=== PATIENT | male | born 1995 | race Caucasian/White ===

== ENCOUNTER 2021-08-22 14:58 | Emergency (ER) | payer OTHER ==
[2021-08-22 15:10] VITALS: BP 131/74
[2021-08-22] MEDS ORDERED: ALBUTEROL 1 PUFF INH STA (16:14)
[2021-08-22] MEDS ORDERED: CETIRIZINE 10 MG TABLET PO STA (16:15)
[2021-08-22] MEDS ORDERED: CHERRY SYRUP 10 ML UDC PO ONE (16:15)
[2021-08-22] MEDS ORDERED: AMOXICILLIN 250 MG CAPSULE PO STA (16:15)
[2021-08-22] MEDS ORDERED: DEXAMETHASONE 10 MG/ML VIAL PO STA (16:15)
--- NOTE | 2021-08-22 16:16 | ED Physician Documentation ---
PD HPI URI - Stated complaint Stated Complaint: SOA,RIGHT EAR & HEAD PX,WEAK - Chief complaint Chief Complaint: Resp - History obtained from History obtained from: Patient - History of Present Illness Timing - onset: How many days ago (5-6) Timing duration: Days (5-6) Timing details: Gradual onset, Still present Associated symptoms: Chills, Ear pain (right for 2 days, with impaired hearing. No drainage.), Nasal congestion, Sinus pain Contributing factors: Sick contact (No direct contact with COVID and had negative rapid antigen COVID test x3. However exposed to other head cold type symptoms.), Travel (from [place] on short training session, returned 4 days ago.). No: COPD / asthma Improves by: No: Rest Worsened by: Activity (he feels unable to get breath with light activity.) Similar symptoms before: Has not had sx before Recently seen: Not recently seen ([facility] but was referred to the ER.) Review of Systems Constitutional: reports: Myalgias, Fatigue. denies: Fever Ears: reports: Ear pain (right side wiith imparied hearing for 2 days.) Nose: reports: Congestion, Sinus pressure / pain Respiratory: reports: Dyspnea, Cough. denies: Wheezing (just feeling breaths are "ineffective".) GI: reports: Nausea (when coughing hard.). denies: Vomiting, Diarrhea Skin: denies: Rash, Lesions PD PAST MEDICAL HISTORY - Past Medical History Cardiovascular: None Respiratory: None - Present Medications Home Medications: Ambulatory Orders Medication Instructions Recorded Confirmed Albuterol Sulf [Ventolin Hfa 2 - 3 puffs INH QID 10 Days #1 08/22/21 Inhaler] inhaler Amoxicillin 500 mg PO TID 5 Days #15 cap 08/22/21 Cetirizine [ZyrTEC] 10 mg PO BID #15 tablet 08/22/21 Naproxen 250 mg PO TID 7 Days #20 tablet 08/22/21 - Allergies Allergies/Adverse Reactions: Allergies Allergy/AdvReac Type Severity Reaction Status Date / Time No Known Drug Allergies Allergy Verified 08/22/21 15:10 PD ED PE NORMAL - Vitals Vital signs reviewed: Yes - General General: Alert and oriented X 3, Well developed/nourished - HEENT HEENT: Pharynx benign. No: Ears normal (left normal. right with redness, indistinct markings and fluid behind TM. ) Results - Vitals Vitals: Vital Signs - 24 hr 08/22/21 15:05 Temperature 36.5 C Heart Rate 80 Respiratory 14 Rate Blood Pressure 131/74 H O2 Saturation 98 Oxygen O2 Source Room air - Rads (name of study) chest xray Radiology: Prelim report reviewed (No infiltrates no pneumothorax. Fully expanded.), See rad report PD MEDICAL DECISION MAKING - ED course Complexity details: re-evaluated patient (He does have some prolonged expiratory phase and scattered wheezing with breaths. No coarse sounds. Heart is regular with crisp sounds. Right ear is redness with fluid behind the eardrum. He has been ill long enough that a secondary ear infection is possible.), considered differential (Upper respiratory infection symptoms along with cough and feeling short of breath. He has in home COVID test that are negative and feels he does not need another test. Concerned with his breathing.), d/w patient Departure - Departure Disposition: 01 Home, Self Care Clinical Impression: Upper respiratory infection Qualifiers: URI type: unspecified URI Qualified Code(s): J06.9 - Acute upper respiratory infection, unspecified Dyspnea Qualifiers: Dyspnea type: shortness of breath Qualified Code(s): R06.02 - Shortness of breath; R06.00 - Dyspnea, unspecified; R06.01 - Orthopnea Otitis media Qualifiers: Otitis media type: suppurative Chronicity: acute Laterality: right Recurrence: non-recurrent Spontaneous tympanic membrane rupture: without spontaneous rupture Qualified Code(s): H66.001 - Acute suppurative otitis media without spontaneous rupture of ear drum, right ear Condition: Stable Record reviewed to determine appropriate education?: Yes Instructions: ED URI Viral W Wheezing, ED Otitis Media Acute Adult Follow-Up: MARIE PRINGLE MD [Primary Care Provider] - Prescriptions: Amoxicillin 500 mg PO TID 5 Days #15 cap Naproxen 250 mg PO TID 7 Days #20 tablet Albuterol Sulf [Ventolin Hfa Inhaler] 2 - 3 puffs INH QID 10 Days #1 inhaler Cetirizine [ZyrTEC] 10 mg PO BID #15 tablet Comments: Your chest x-ray is clear without any signs of pneumonia nor fluid around the lungs. This does sound most likely a viral illness with congestion, sinus pressure, bronchial inflammation and trouble breathing. Your right eardrum is red with some fluid behind in the middle ear. This can be a secondary bacterial infection or may still be part of the main viral. As such though we commonly go some antibiotics to cover potential bacterial. Amoxicillin three times daily for that. I suggest you use an albuterol inhaler 2 to 3 puffs 4 times a day regularly for the next several days to week and extra times if needed to help with breathing. Naproxen anti-inflammatory 3 times daily with food for inflammation. Cetirizine twice daily for the next week for congestion. Rest off work the next couple of days until improved. Follow-up with your primary care if not well improved over the next couple of days more. I sent your prescriptions to [facility] pharmacy in [place].
--- NOTE | 2021-08-22 16:23 | XRAY Report ---
PROCEDURE: Chest 1 View X-Ray INDICATIONS: dyspnea TECHNIQUE: One view of the chest was acquired. COMPARISON: None FINDINGS: Surgical changes and devices: None. Lungs and pleura: No pleural effusions or pneumothorax. Lungs are clear. Mediastinum: Mediastinal contours appear normal. Heart size is normal. Bones and chest wall: No suspicious bony lesions. Overlying soft tissues appear unremarkable. IMPRESSION: No acute cardiopulmonary pathology. Reviewed by: Niko Segura MD on 08/22/2021 4:22 PM PDT Approved by: Niko Segura MD on 08/22/2021 4:22 PM PDT Station ID: [id number]
== END 2021-08-22 16:50 | disposition home or self-care (01) ==
LOC: ED 14:58
DX: J06.9 Acute upper respiratory infection, unspecified (principal); H66.001 Acute suppurative otitis media without spontaneous rupture of ear drum, right ear
CPT/HCPCS: 71045; 94640; 94664; 99282; 99284; A9270

== ENCOUNTER 2023-02-05 17:20 | Emergency (ER) | payer OTHER ==
[2023-02-05 17:39] VITALS: BP 138/89; O2SAT 98
[2023-02-05 18:12] LABS: MUDS CUTOFF CONCENTRATIONS CUTOFF CONC BELOW:
[2023-02-05 18:26] LABS: BILIRUBIN,URINE NEGATIVE (NEGATIVE); GLUCOSE, URINE (UA) NEGATIVE (NEGATIVE); KETONES,URINE (UA) NEGATIVE (NEGATIVE); LEUKOCYTE ESTERASE, URINE NEGATIVE (NEGATIVE); NITRITE,URINE NEGATIVE (NEGATIVE); OCCULT BLOOD,URINE NEGATIVE (NEGATIVE); PROTEIN,URINE NEGATIVE (NEGATIVE); UROBILINOGEN,URINE 0.2 (NORMAL) E.U./dL (NORMAL)
[2023-02-05 18:29] LABS: BASOPHILS # (AUTO) 0.1 10^3/uL (0.0-0.1); BASOPHILS % (AUTO) 0.8 %; EOSINOPHILS # (AUTO) 0.2 10^3/uL (0.0-0.7); EOSINOPHILS % (AUTO) 1.9 %; HCT - HEMATOCRIT 44.6 % (42.0-52.0); HGB - HEMOGLOBIN 15.8 g/dL (14.0-18.0); LYMPHOCYTES # (AUTO) 3.2 10^3/uL (1.5-3.5); LYMPHOCYTES % (AUTO) 37.6 %; MEAN CORPUSCULAR HEMOGLOBIN 30.6 pg (27.0-31.0); MEAN CORPUSCULAR HGB CONC 35.4 g/dL (32.0-36.0); MEAN CORPUSCULAR VOLUME 86.3 fL (80.0-94.0); MONOCYTES # (AUTO) 0.6 10^3/uL (0.0-1.0); MONOCYTES % (AUTO) 7.6 %; NEUTROPHILS # (AUTO) 4.4 10^3/uL (1.5-6.6); NEUTROPHILS % (AUTO) 51.7 %; PLT - PLATELET COUNT 265 10^3/uL (130-450); RED BLOOD COUNT 5.17 10^6/uL (4.70-6.10); RED CELL DISTRIBUTION WIDTH 11.8 % (12.0-15.0); WHITE BLOOD COUNT 8.4 x10^3/uL (4.8-10.8)
[2023-02-05 18:32] LABS: CLARITY,URINE CLEAR (CLEAR)
[2023-02-05 18:35] LABS: AMPHETAMINE SCREEN,URINE NEGATIVE (NEGATIVE); BARBITURATE SCREEN,UR NEGATIVE (NEGATIVE); BENZODIAZEPINES SCREEN, URINE NEGATIVE (NEGATIVE); COCAINE SCREEN URINE NEGATIVE (NEGATIVE); METHADONE SCREEN, URINE NEGATIVE (NEGATIVE); METHAMPHETAMINES SCREEN, URINE NEGATIVE (NEGATIVE); OPIATE SCREEN, URINE NEGATIVE (NEGATIVE); OXYCODONE SCREEN, URINE NEGATIVE (NEGATIVE); PROPOXYPHENE SCREEN, URINE NEGATIVE (NEGATIVE); THC CANNABINOID SCREEN, URINE NEGATIVE (NEGATIVE); TRICYCLIC ANTIDEPRESSANT,URINE NEGATIVE (NEGATIVE)
[2023-02-05 18:39] LABS: ACETAMINOPHEN 0.1 ug/mL; ALBUMIN/GLOBULIN RATIO 1.8 (1.0-2.2); ALKALINE PHOSPHATASE 46 IU/L (42-121); ALT ALANINE AMINOTRANSFERASE 96 IU/L (10-60); AST ASPARTATE AMINOTRANSFERASE 54 IU/L (10-42); BILIRUBIN,TOTAL 0.5 mg/dL (0.2-1.0); BUN - BLOOD UREA NITROGEN 16 mg/dL (6-20); CALCIUM 10.2 mg/dL (8.5-10.3); CARBON DIOXIDE - CO2 26 mmol/L (21-32); CHLORIDE 105 mmol/L (101-111); CK- CREATINE KINASE 226 IU/L (30-223); CREATININE 0.9 mg/dL (0.6-1.3); ETOH - ETHANOL < 10.0 mg/dL; GFR - MDRD 100 (>89); GLUCOSE 94 mg/dL (74-104); LIPASE 39 U/L (11-82); MAGNESIUM 1.6 mg/dL (1.7-2.3); SODIUM 139 mmol/L (135-145); TOTAL PROTEIN 7.8 g/dL (6.4-8.9)
[2023-02-05 18:47] LABS: SALICYLATE < 1.5 mg/dL
[2023-02-05 18:53] LABS: THYROID STIMULATING HORMONE 2.23 uIU/mL (0.34-5.60)
--- NOTE | 2023-02-05 18:56 | ED Physician Documentation ---
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 He states that he has been feeling increasingly suicidal over the past several months. No specific trigger. Drinks socially. No drug use. He does vape. He states he attempted suicide by overdosing on his mother's medications at age 17. He states that he was "disappointed" when he awoke in the morning. He has never been hospitalized for suicidal ideation. He states that if he had access to a gun we "would not be talking". He currently still feels suicidal. He does not feel like he can keep himself safe at home. [place] but they referred him to online therapy and he did not feel like that was personal enough so he quit going. He was on Adderall for ADHD, but is not currently on any medications. Review of Systems Constitutional: denies: Fever Respiratory: denies: Cough GI: denies: Vomiting, Diarrhea Skin: denies: Rash Musculoskeletal: reports: Other (Patient is in a walking boot to the right lower extremity from a ankle sprain 7 months ago.). denies: Neck pain, Extremity pain Psychiatric: reports: Depressed, Suicidal. denies: Hallucinations, Delusions PD PAST MEDICAL HISTORY - Past Medical History Cardiovascular: None Respiratory: None - Past Surgical History Past Surgical History: No - Present Medications Home Medications: Ambulatory Orders Medication Instructions Recorded Confirmed No Known Home Medications 02/05/23 02/05/23 - Allergies Allergies/Adverse Reactions: Allergies Allergy/AdvReac Type Severity Reaction Status Date / Time No Known Drug Allergies Allergy Verified 02/05/23 17:33 - Social History Does the pt smoke?: No Smoking Status: Never smoker - POLST Patient has POLST: No PD ED PE NORMAL - Vitals Vital signs reviewed: Yes - General General: Alert and oriented X 3, No acute distress - HEENT HEENT: PERRL, Moist mucous membranes - Neck Neck: Supple, no meningeal sign - Cardiac Cardiac: RRR, Strong equal pulses - Respiratory Respiratory: No respiratory distress, Clear bilaterally - Abdomen Abdomen: Soft, Non tender, Non distended - Derm Derm: Warm and dry - Extremities Extremities: No edema, No calf tenderness / cord, Other (Walking boot on right lower extremity) - Neuro Neuro: Alert and oriented X 3 - Psych Psych: Normal mood, Normal affect Results - Vitals Vitals: Vital Signs - 24 hr 02/05/23 17:27 Temperature 36.5 C Heart Rate 98 Respiratory 14 Rate Blood Pressure 138/89 H O2 Saturation 98 Oxygen O2 Source Room air - Labs Labs: Laboratory Tests 02/05/23 02/05/23 02/05/23 18:10 18:11 18:18 WBC 8.4 RBC 5.17 Hgb 15.8 Hct 44.6 MCV 86.3 MCH 30.6 MCHC 35.4 RDW 11.8 L Plt Count 265 MPV 10.0 Neut # (Auto) 4.4 Lymph # (Auto) 3.2 [place] # (Auto) 0.6 Eos # (Auto) 0.2 Baso # (Auto) 0.1 Absolute Nucleated RBC 0.00 Nucleated RBC % 0.0 Sodium Potassium Chloride Carbon Dioxide Anion Gap BUN Creatinine Estimated GFR (MDRD) Glucose Calcium Magnesium Total Bilirubin AST ALT Alkaline Phosphatase Total Creatine Kinase Total Protein Albumin Globulin Albumin/Globulin Ratio Lipase TSH Urine Color YELLOW Urine Clarity CLEAR Urine pH 6.0 Ur Specific [place] 1.020 Urine Protein NEGATIVE Urine Glucose (UA) NEGATIVE Urine Ketones NEGATIVE Urine Occult Blood NEGATIVE Urine Nitrite NEGATIVE Urine Bilirubin NEGATIVE Urine Urobilinogen 0.2 (NORMAL) Ur Leukocyte Esterase NEGATIVE Ur Microscopic Review NOT INDICATED Urine Culture Comments NOT INDICATED Salicylates Urine Opiates Screen NEGATIVE Ur Oxycodone Screen NEGATIVE Urine Methadone Screen NEGATIVE Ur Propoxyphene Screen NEGATIVE Acetaminophen Ur Barbiturates Screen NEGATIVE Ur Tricyclics Screen NEGATIVE Ur Phencyclidine Scrn NEGATIVE Ur Amphetamine Screen NEGATIVE U Methamphetamines Scrn NEGATIVE U Benzodiazepines Scrn NEGATIVE Urine Cocaine Screen NEGATIVE U Cannabinoids Screen NEGATIVE Ethyl Alcohol SARS-CoV-2 (PCR) NOT DETECTED 02/05/23 18:18 WBC RBC Hgb Hct MCV MCH MCHC RDW Plt Count MPV Neut # (Auto) Lymph # (Auto) [place] # (Auto) Eos # (Auto) Baso # (Auto) Absolute Nucleated RBC Nucleated RBC % Sodium 139 Potassium 4.0 Chloride 105 Carbon Dioxide 26 Anion Gap 8.0 BUN 16 Creatinine 0.9 Estimated GFR (MDRD) 100 Glucose 94 Calcium 10.2 Magnesium 1.6 L Total Bilirubin 0.5 AST 54 H ALT 96 H Alkaline Phosphatase 46 Total Creatine Kinase 226 H Total Protein 7.8 Albumin 5.0 Globulin 2.8 Albumin/Globulin Ratio 1.8 Lipase 39 TSH 2.23 Urine Color Urine Clarity Urine pH Ur Specific [place] Urine Protein Urine Glucose (UA) Urine Ketones Urine Occult Blood Urine Nitrite Urine Bilirubin Urine Urobilinogen Ur Leukocyte Esterase Ur Microscopic Review Urine Culture Comments Salicylates < 1.5 Urine Opiates Screen Ur Oxycodone Screen Urine Methadone Screen Ur Propoxyphene Screen Acetaminophen 0.1 Ur Barbiturates Screen Ur Tricyclics Screen Ur Phencyclidine Scrn Ur Amphetamine Screen U Methamphetamines Scrn U Benzodiazepines Scrn Urine Cocaine Screen U Cannabinoids Screen Ethyl Alcohol < 10.0 SARS-CoV-2 (PCR) PD Medical Decision Making - ED course Complexity details: reviewed results, re-evaluated patient, considered differential, d/w patient, d/w sales development consultant ED course: Patient is medically clear for psychiatric care. He is actively suicidal and does not feel that he can keep himself safe. Has had a suicide attempt in the past but never been hospitalized. As he is actively suicidal and cannot safety plan, I will contact [facility] for possible placement. Discussed the case with [facility], Dr. Hassan, she graciously accepts in transfer. Patient will be transferred for further psychiatric care. [employer] forms [employer] mpleted. This document was made in part using voice recognition software. While efforts are made to proofread this document, sound alike and grammatical errors may occur. Departure - Departure Disposition: 65 Psych Hosp/Unit DC/Xfer Clinical Impression: Suicidal ideation Condition: Stable Forms: PCP List
== END 2023-02-05 21:04 ==
LOC: ED 17:20
DX: R45.851 Suicidal ideations (principal); F32.A Depression, unspecified; Z20.822 Contact with and (suspected) exposure to COVID-19
CPT/HCPCS: 36415; 80053; 80306; 80307; 80320; 80329; 81001; 81003; 82550; 83690; 83735; 84443; 85025; 87086; 87635; 99285

== ENCOUNTER 2023-06-09 15:17 | Emergency (ER) | payer OTHER ==
[2023-06-09 16:23] LABS: RAPID STREP SCREEN Negative (Negative)
[2023-06-09 17:01] LABS: B. PARAPERTUSSIS- RESP PCR PAN NOT DETECTED; B. PERTUSSIS- RESP PCR PANEL NOT DETECTED; C. PNEUMONIAE- RESP PCR PANEL NOT DETECTED; CORONAVIRUS 229E-RESP PCR NOT DETECTED; CORONAVIRUS HKU1-RESP PCR NOT DETECTED; CORONAVIRUS NL63-RESP PCR NOT DETECTED; CORONAVIRUS OC43-RESP PCR NOT DETECTED; HUMAN METAPNEUMOVIRUS NOT DETECTED; INFLUENZA A- RESP PCR PANEL NOT DETECTED; INFLUENZA B - RESP PCR PANEL NOT DETECTED; M. PNEUMONIAE- RESP PCR PANEL NOT DETECTED; PARAINFLUENZA VIRUS 1 NOT DETECTED; PARAINFLUENZA VIRUS 2 NOT DETECTED; PARAINFLUENZA VIRUS 3 NOT DETECTED; PARAINFLUENZA VIRUS 4 NOT DETECTED; RHINOVIRUS/ENTEROVIRUS NOT DETECTED; RSV- RESP PCR PANEL NOT DETECTED; SARS-CoV-2 -RESP PCR PANEL NOT DETECTED
[2023-06-09] MEDS: DEXAMETHASONE 10 MG/ML VIAL PO STA (17:06)
[2023-06-09] MEDS: CHERRY SYRUP 10 ML UDC PO ONE (17:06)
[2023-06-09] MEDS: IBUPROFEN 600 MG TABLET PO STA (17:32)
[2023-06-09] MEDS: ACETAMINOPHEN 325 MG TABLET PO STA (17:32)
--- NOTE | 2023-06-09 17:50 | ED Physician Documentation ---
PD HPI HEENT - Stated complaint Stated Complaint: THROAT PX, SOA,DIZZINESS,LOSS OF BALANCE - Chief complaint Chief Complaint: Heent - Additional information Additional information: 28-year-old male presents emergency department for 1 week of sore throat. He went to [facility] where he was told to take Tylenol ibuprofen he was never prescribed any steroids at that time. He is told to come back to the emergency department for further evaluation if symptoms do not improve. Patient says that he has been coughing up some blood feels generalized malaise and now reports an new dizziness where he feels like he is having a hard time catching his balance because he feels like the room is spinning around her ground is unstable. He reports it is painful to swallow he has been unsure if he had any fevers or chills but does report that he has noted tachycardia on his watch PD PAST MEDICAL HISTORY - Past Medical History Past Medical History: Yes Cardiovascular: None Respiratory: None Neuro: None Endocrine/Autoimmune: None GI: None : None Psych: Depression, Anxiety, Panic attacks, Other Musculoskeletal: Other Derm: None - Past Surgical History Past Surgical History: No - Present Medications Home Medications: Ambulatory Orders Medication Instructions Recorded Confirmed Amoxicillin 500 mg PO BID 10 Days #20 cap 06/09/23 DULoxetine [Cymbalta] 20 mg PO DAILY 06/09/23 06/09/23 Dextroamphetamine/Amphetamine 5 mg PO DAILY 06/09/23 06/09/23 [Dextroamp-Amphetamine 5 mg Tab] Meclizine [Antivert] 12.5 mg PO TID PRN #15 tablet 06/09/23 clonazePAM [Clonazepam] 0.5 mg PO DAILY 06/09/23 06/09/23 dexAMETHasone [Decadron] 4 mg PO 0800 4 Days #4 tablet 06/09/23 - Allergies Allergies/Adverse Reactions: Allergies Allergy/AdvReac Type Severity Reaction Status Date / Time No Known Drug Allergies Allergy Verified 06/09/23 15:59 - Social History Does the pt smoke?: No Smoking Status: Never smoker Does the pt drink ETOH?: Yes Does the pt have substance abuse?: No - Immunizations Immunizations are current?: Yes - POLST Patient has POLST: No PD ED PE NORMAL - Vitals Vital signs reviewed: Yes - General General: Alert and oriented X 3, No acute distress, Well developed/nourished - HEENT HEENT: PERRL, EOMI, Ears normal, Moist mucous membranes, Other (Uvula is midline does appear to be swollen and erythematous, No peritonsillar abscess, 3+ bilateral tonsils) - Neck Neck: Supple, no meningeal sign, No bony TTP, Other (right cervical adenopathy) - Respiratory Respiratory: No respiratory distress, Clear bilaterally - Abdomen Abdomen: Normal bowel sounds, Soft, Non tender, No organomegaly - Back Back: No CVA TTP - Derm Derm: Normal color, Warm and dry, No rash - Extremities Extremities: No edema - Neuro Neuro: Alert and oriented X 3, correctional guard 2-12 intact, No motor deficit, Normal speech Eye Opening: Spontaneous Motor: Obeys Commands Verbal: Oriented GCS Score: 15 - Psych Psych: Normal mood Results - Vitals Vitals: Vital Signs - 24 hr 06/09/23 06/09/23 15:59 18:01 Temperature 36.7 C 36.8 C Heart Rate 108 H 86 Respiratory 20 16 Rate Blood Pressure 119/76 120/77 O2 Saturation 96 100 Oxygen O2 Source Room air - Labs Labs: Laboratory Tests 06/09/23 06/09/23 16:05 16:05 Nasal Adenovirus (PCR) NOT DETECTED Nasal B. parapertussis DNA (PCR) NOT DETECTED Nasal Coronavir 229E PCR NOT DETECTED Nasal Coronavir HKU1 PCR NOT DETECTED Nasal Coronavir NL63 PCR NOT DETECTED Nasal Coronavir OC43 PCR NOT DETECTED Nasal Enterovir/Rhinovir PCR NOT DETECTED Nasal Influenza B PCR NOT DETECTED Nasal Influenza A PCR NOT DETECTED Nasal Parainfluen 1 PCR NOT DETECTED Nasal Parainfluen 2 PCR NOT DETECTED Nasal Parainfluen 3 PCR NOT DETECTED Nasal Parainfluen 4 PCR NOT DETECTED Nasal RSV (PCR) NOT DETECTED Nasal B.pertussis DNA PCR NOT DETECTED Nasal C.pneumoniae (PCR) NOT DETECTED [place] Human Metapneumo PCR NOT DETECTED Nasal M.pneumoniae (PCR) NOT DETECTED Nasal SARS-CoV-2 (PCR) NOT DETECTED Group A Strep Rapid Negative - Rads (name of study) X-ray soft tissue neck Relevant Findings:: Final report received, EMP independent interpretation of test, Other (No epiglottitis normal-appearing x-ray) PD Medical Decision Making - ED course ED course: 28-year-old male presents emergency department for ongoing sore throat now for about a week. Viral swab complete no viruses detected, negative rapid group A strep. Swab was sent for further culture analysis. Soft tissue x-ray was also complete which does not reveal epiglottitis. Patient does not have hot potato voice he does appear to have a soft voice which sounds to be more pharyngeal. No history of immunocompromise. Nontoxic appearance. Patient euvolemic with no trismus. No airway compromise. No tonsilar exudates, He does have right cervical enlarged lymph nodes. Able to tolerate PO. Given History and Exam I have low suspicion for this presentation being caused by GRINDER SET UP OPERATOR CENTERLESS, RPA, Ludwigs angina, Epiglottitis or Bacterial Tracheitis, EBV, acute HIV, or Strep throat. Because patient has been feeling ill now for about a week or so we went ahead and started him on amoxicillin antibiotics and gave him steroids here in the emergency department to help with his throat pain and swelling he is experiencing. Patient also describes symptoms of BPPV I considered lab otitis but he does not have any ear ringing or decreased hearing. He was given a prescription of meclizine to help with his vertigo symptoms he was told also how to do Rafael's maneuver at home to help with this. He was given very strict return precautions told to follow-up with his primary care provider about today's emergency department visit Departure - Departure Disposition: 01 Home, Self Care Clinical Impression: Vertigo Pharyngitis Qualifiers: Pharyngitis/tonsillitis etiology: unspecified etiology Qualified Code(s): J02.9 - Acute pharyngitis, unspecified Condition: Good Instructions: Vertigo Paroxysmal Positional, ED Pharyngitis Viral Prescriptions: Amoxicillin 500 mg PO BID 10 Days #20 cap Meclizine [Antivert] 12.5 mg PO TID PRN #15 tablet PRN Reason: Dizziness dexAMETHasone [Decadron] 4 mg PO 0800 4 Days #4 tablet Comments: Thank you for trusting us with your care. I believe that you hide pharyngitis we have completed an x-ray which does not show any epiglottitis. We have started you on an antibiotic called amoxicillin as well as a steroid called dexamethasone. I want you to take the antibiotic amoxicillin twice a day for the next 10 days and you will take your dexamethasone the steroid once a day for the next 4 days. In regards to your dizziness I believe that you are experiencing something called BPPV, also known as vertigo. I have prescribed you medication called meclizine to help with the symptoms that you are experiencing. I also want you to look up on YouTube something called Rafael's maneuver to help with your ongoing symptoms of vertigo. Make sure that you are drinking plenty of water do warm salt water rinses and alternate between Tylenol and ibuprofen for any pain and discomfort you are experiencing in your throat. Please come back to the emergency department if after 2 days your throat pain has not gotten any better after being on the antibiotics and steroids, or if you have any difficulty breathing, shortness of breath, chest pain or any other worsening concerning symptoms. Wishing you a speedy recovery. Forms: PCP List Discharge Date/Time: 06/09/23 18:01
[2023-06-09] MEDS: MECLIZINE 12.5 MG TABLET PO STA (17:52)
[2023-06-09] MEDS: AMOXICILLIN 250 MG CAPSULE PO STA (17:58)
[2023-06-09 18:06] VITALS: BP 120/77; O2SAT 100
--- NOTE | 2023-06-09 19:08 | XRAY Report ---
PROCEDURE: Neck Soft Tissue INDICATIONS: throat swelling voice changes TECHNIQUE: 2 views of the neck were acquired. COMPARISON: None FINDINGS: Airway: The airway appears patent. Soft tissues: Prevertebral soft tissues are normal in thickness. The epiglottis and aryepiglottic f olds appear normal. No soft tissue gas. Bones: No suspicious bony lesions. Visualized cervical spine is normally aligned. IMPRESSION: Unremarkable soft tissue neck radiographs Reviewed by: Lio David MD on 06/09/2023 6:07 PM [facility] Approved by: Lio David MD on 06/09/2023 6:07 PM [facility] Station ID: [id number]
== END 2023-06-09 18:01 | disposition home or self-care (01) ==
LOC: ED 15:17
DX: J02.9 Acute pharyngitis, unspecified (principal); R42 Dizziness and giddiness
CPT/HCPCS: 70360; 87070; 87430; 87633; 99284; A9270

== ENCOUNTER 2023-06-18 11:54 | Emergency (ER) | payer OTHER ==
--- NOTE | 2023-06-18 12:57 | ED Physician Documentation ---
History of Present Illness - Stated complaint Stated Complaint: SOA,THROATPAIN,UNABLE TO OPEN MOUTH WIDE - Chief complaint Chief Complaint: General - Additonal information Additional information: 28-year-old male presents back to the emergency department for ongoing sore throat. He has been seen multiple times for this he has been prescribed Augmentin, steroids, meclizine. He reported to urgent care today for ongoing sore throat and they referred him to come into the emergency department. Patient has longstanding history of severe depression with suicidal ideation, depersonalization, derealization syndrome, chronic pain of right lower extremity, complex regional pain syndrome. Patient's voice does not sound like hot potato voice but it does sound like he has a mild hoarseness to the voice. He has a notebook with him he says that he has a hard time speaking and asked me to read his note but instead of communicating and conversing with me. Patient said that he was all seen by DOD in May where he was told he had a high white blood cell count and feels like he has been struggling with sore throat since then and feels like maybe something has been missed. He is unsure if he has had any fevers or chills but reports he feels very flushed and hot periodically. PD PAST MEDICAL HISTORY - Past Medical History Past Medical History: Yes Cardiovascular: None Respiratory: None Neuro: None Endocrine/Autoimmune: None GI: None : None Psych: Depression, Anxiety, Panic attacks, Other Musculoskeletal: Other Derm: None - Past Surgical History Past Surgical History: No - Present Medications Home Medications: Ambulatory Orders Medication Instructions Recorded Confirmed Amoxicillin 500 mg PO BID 10 Days #20 cap 06/09/23 DULoxetine [Cymbalta] 20 mg PO DAILY 06/09/23 06/09/23 Dextroamphetamine/Amphetamine 5 mg PO DAILY 06/09/23 06/09/23 [Dextroamp-Amphetamine 5 mg Tab] Meclizine [Antivert] 12.5 mg PO TID PRN #15 tablet 06/09/23 clonazePAM [Clonazepam] 0.5 mg PO DAILY 06/09/23 06/09/23 dexAMETHasone [Decadron] 4 mg PO 0800 4 Days #4 tablet 06/09/23 - Allergies Allergies/Adverse Reactions: Allergies Allergy/AdvReac Type Severity Reaction Status Date / Time No Known Drug Allergies Allergy Verified 06/18/23 12:13 - Social History Does the pt smoke?: No Smoking Status: Never smoker Does the pt drink ETOH?: Yes Does the pt have substance abuse?: No - Immunizations Immunizations are current?: Yes - POLST Patient has POLST: No PD ED PE NORMAL - Vitals Vital signs reviewed: Yes - General General: Alert and oriented X 3, No acute distress, Well developed/nourished - HEENT HEENT: Atraumatic, PERRL, EOMI, Ears normal, Moist mucous membranes, Pharynx benign, Dentition benign - Neck Neck: Supple, no meningeal sign, No bony TTP, No adenopathy, Thyroid normal, No JVD - Cardiac Cardiac: RRR, No murmur, No gallop, Strong equal pulses - Respiratory Respiratory: No respiratory distress, Clear bilaterally - Back Back: No CVA TTP - Derm Derm: Normal color, Warm and dry, No rash - Extremities Extremities: No deformity, No edema Results - Vitals Vitals: Vital Signs - 24 hr 06/18/23 06/18/23 12:06 14:13 Temperature 36.7 C Heart Rate 105 H 94 Respiratory 20 16 Rate Blood Pressure 150/94 H 143/97 H O2 Saturation 96 100 Oxygen O2 Source Room air - Labs Labs: Laboratory Tests 06/18/23 06/18/23 06/18/23 13:20 13:20 13:20 WBC 8.3 RBC 5.31 Hgb 16.6 Hct 47.9 MCV 90.2 MCH 31.3 H MCHC 34.7 RDW 12.7 Plt Count 268 MPV 9.9 Neut # (Auto) 5.5 Lymph # (Auto) 1.9 Winn # (Auto) 0.7 Eos # (Auto) 0.1 Baso # (Auto) 0.1 Absolute Nucleated RBC 0.00 Nucleated RBC % 0.0 Sodium 137 Potassium 4.7 H Chloride 104 Carbon Dioxide 24 Anion Gap 9.0 BUN 18 Creatinine 0.8 Estimated GFR (MDRD) 114 Glucose 97 Calcium 9.9 Magnesium 2.0 Total Bilirubin 0.6 AST 43 H ALT 80 H Alkaline Phosphatase 44 Total Protein 7.8 Albumin 4.9 Globulin 2.9 Albumin/Globulin Ratio 1.7 Nasal Adenovirus (PCR) Nasal B. parapertussis DNA (PCR) Nasal Coronavir 229E PCR Nasal Coronavir HKU1 PCR Nasal Coronavir NL63 PCR Nasal Coronavir OC43 PCR Nasal Enterovir/Rhinovir PCR Nasal Influenza B PCR Nasal Influenza A PCR Nasal Parainfluen 1 PCR Nasal Parainfluen 2 PCR Nasal Parainfluen 3 PCR Nasal Parainfluen 4 PCR Nasal RSV (PCR) Nasal B.pertussis DNA PCR Nasal C.pneumoniae (PCR) Holden Human Metapneumo PCR Nasal M.pneumoniae (PCR) Nasal SARS-CoV-2 (PCR) 06/18/23 13:40 WBC RBC Hgb Hct MCV MCH MCHC RDW Plt Count MPV Neut # (Auto) Lymph # (Auto) Winn # (Auto) Eos # (Auto) Baso # (Auto) Absolute Nucleated RBC Nucleated RBC % Sodium Potassium Chloride Carbon Dioxide Anion Gap BUN Creatinine Estimated GFR (MDRD) Glucose Calcium Magnesium Total Bilirubin AST ALT Alkaline Phosphatase Total Protein Albumin Globulin Albumin/Globulin Ratio Nasal Adenovirus (PCR) NOT DETECTED Nasal B. parapertussis DNA (PCR) NOT DETECTED Nasal Coronavir 229E PCR NOT DETECTED Nasal Coronavir HKU1 PCR NOT DETECTED Nasal Coronavir NL63 PCR NOT DETECTED Nasal Coronavir OC43 PCR NOT DETECTED Nasal Enterovir/Rhinovir PCR NOT DETECTED Nasal Influenza B PCR NOT DETECTED Nasal Influenza A PCR NOT DETECTED Nasal Parainfluen 1 PCR NOT DETECTED Nasal Parainfluen 2 PCR NOT DETECTED Nasal Parainfluen 3 PCR NOT DETECTED Nasal Parainfluen 4 PCR NOT DETECTED Nasal RSV (PCR) NOT DETECTED Nasal B.pertussis DNA PCR NOT DETECTED Nasal C.pneumoniae (PCR) NOT DETECTED Holden Human Metapneumo PCR NOT DETECTED Nasal M.pneumoniae (PCR) NOT DETECTED Nasal SARS-CoV-2 (PCR) NOT DETECTED - Rads (name of study) Chest x-ray Relevant Findings:: Final report received, EMP independent interpretation of test, Other ( No acute cardiopulmonary abnormalities) Soft tissue neck CT with con Relevant Findings:: Final report received, EMP independent interpretation of test, Other (No enlarged lymph nodes no acute abnormalities or findings no abscesses ) PD Medical Decision Making - ED course ED course: 28-year-old male presents emergency department for persistent ongoing sore throat. Patient has been seen multiple times for this a complete and very thorough workup was done today including a CT soft tissue neck which did not reveal any abnormalities or findings that could conclude why patient is having right neck pain. Respiratory panel is negative, labs were unremarkable, chest x-ray is also unremarkable.Originally when patient presented to the emergency department he had some hoarseness to his voice it was not hot potato voice but it sounded very hoarse after patient was informed that he had a completely unremarkable and benign workup his voice started to become more audible and clear. Patient says that he is worried that this could be a new manifestation of his chronic pain syndrome that he experiences in his right lower extremity that he might be manifesting into his throat. I told him he needed to follow-up with neurology and psychiatry about this and that he had great insight and continue to further investigate And question this. Patient agrees that he is safe for discharge all questions are answered and he is told to follow-up with primary care provider, neurology and psychiatry for further investigation of his chronic sore throat pain. Departure - Departure Disposition: 01 Home, Self Care Clinical Impression: Pharyngitis Instructions: ED Pharyngitis Viral Comments: Thank you for trusting us with your care. We have done a very thorough and complete evaluation of your throat pain that you are experiencing including a chest x-ray, neck CT, labs, respiratory panel and everything has come back within normal limits. I am not sure what is causing this ongoing chronic throat pain but from the emergency department standpoint there is no further emergent workup indicated at this time. I recommend following up with your primary care provider for possible ENT referral. Continue with Tylenol ibuprofen for any pain and discomfort. Forms: PCP List Discharge Date/Time: 06/18/23 15:49
[2023-06-18 13:35] LABS: BASOPHILS # (AUTO) 0.1 10^3/uL (0.0-0.1); BASOPHILS % (AUTO) 0.6 %; EOSINOPHILS # (AUTO) 0.1 10^3/uL (0.0-0.7); EOSINOPHILS % (AUTO) 0.8 %; HCT - HEMATOCRIT 47.9 % (42.0-52.0); HGB - HEMOGLOBIN 16.6 g/dL (14.0-18.0); LYMPHOCYTES # (AUTO) 1.9 10^3/uL (1.5-3.5); LYMPHOCYTES % (AUTO) 23.1 %; MEAN CORPUSCULAR HEMOGLOBIN 31.3 pg (27.0-31.0); MEAN CORPUSCULAR HGB CONC 34.7 g/dL (32.0-36.0); MEAN CORPUSCULAR VOLUME 90.2 fL (80.0-94.0); MEAN PLATELET VOLUME 9.9 fL (7.4-11.4); MONOCYTES # (AUTO) 0.7 10^3/uL (0.0-1.0); NEUTROPHILS # (AUTO) 5.5 10^3/uL (1.5-6.6); NEUTROPHILS % (AUTO) 66.9 %; PLT - PLATELET COUNT 268 10^3/uL (130-450); RED BLOOD COUNT 5.31 10^6/uL (4.70-6.10); RED CELL DISTRIBUTION WIDTH 12.7 % (12.0-15.0); WHITE BLOOD COUNT 8.3 x10^3/uL (4.8-10.8)
[2023-06-18] MEDS ORDERED: iohexoL-300 100 ML VIAL ONE (13:42)
[2023-06-18 14:26] VITALS: BP 143/97; O2SAT 100
--- NOTE | 2023-06-18 14:26 | XRAY Report ---
PROCEDURE: Chest 2V INDICATIONS: SOA TECHNIQUE: 2 views of the chest were acquired. COMPARISON: None. FINDINGS: Surgical changes and devices: None. Lungs and pleura: No pleural effusions or pneumothorax. Lungs are clear. Mediastinum: Mediastinal contours appear normal. Heart size is normal. Bones and chest wall: No suspicious bony lesions. Overlying soft tissues appear unremarkable. IMPRESSION: No acute cardiopulmonary process. Reviewed by: Kuldip iMms MD on 06/18/2023 2:24 PM PDT Approved by: Kuldip Mims MD on 06/18/2023 2:24 PM PDT Station ID: [id number]
[2023-06-18 14:27] LABS: ALBUMIN 4.9 g/dL (3.2-5.5); ALBUMIN/GLOBULIN RATIO 1.7 (1.0-2.2); BILIRUBIN,TOTAL 0.6 mg/dL (0.2-1.0); CALCIUM 9.9 mg/dL (8.5-10.3); CREATININE 0.8 mg/dL (0.6-1.3); POTASSIUM 4.7 mmol/L (3.5-4.5); TOTAL PROTEIN 7.8 g/dL (6.4-8.9)
[2023-06-18 14:45] LABS: B. PARAPERTUSSIS- RESP PCR PAN NOT DETECTED; B. PERTUSSIS- RESP PCR PANEL NOT DETECTED; C. PNEUMONIAE- RESP PCR PANEL NOT DETECTED; CORONAVIRUS 229E-RESP PCR NOT DETECTED; CORONAVIRUS HKU1-RESP PCR NOT DETECTED; CORONAVIRUS NL63-RESP PCR NOT DETECTED; CORONAVIRUS OC43-RESP PCR NOT DETECTED; HUMAN METAPNEUMOVIRUS NOT DETECTED; INFLUENZA A- RESP PCR PANEL NOT DETECTED; INFLUENZA B - RESP PCR PANEL NOT DETECTED; M. PNEUMONIAE- RESP PCR PANEL NOT DETECTED; PARAINFLUENZA VIRUS 1 NOT DETECTED; PARAINFLUENZA VIRUS 2 NOT DETECTED; PARAINFLUENZA VIRUS 3 NOT DETECTED; PARAINFLUENZA VIRUS 4 NOT DETECTED; RHINOVIRUS/ENTEROVIRUS NOT DETECTED; RSV- RESP PCR PANEL NOT DETECTED; SARS-CoV-2 -RESP PCR PANEL NOT DETECTED
--- NOTE | 2023-06-18 15:19 | CT Report ---
PROCEDURE: Soft Tissue Neck W INDICATIONS: SOA, right neck pain, CONTRAST: Omni 300- 100ml TECHNIQUE: After the administration of intravenous contrast, 3.0 mm axial sections acquired from the sella to th e aortic arch. Additional oblique axial 3.0 mm sections acquired through the pharynx. 3 mm thick co bossman reformats were generated. For radiation dose reduction, the following was used: automated exp osure control, adjustment of mA and/or kV according to patient size. COMPARISON: None. FINDINGS: Image quality: Excellent. Lymph nodes: No enlarged lymph nodes seen throughout the neck. Vessels: Visualized vasculature appears patent. Neck spaces: The oropharynx, nasopharynx, and pharynx demonstrate no mucosal lesions. The vocal cor ds, false vocal cords, pyriform sinuses, epiglottis, vallecula, and tongue base all appear normal. E xtramucosal spaces appear unremarkable. Glands: The parotid and submandibular glands appear normal. The thyroid is normal in size and there are no incidental findings. Miscellaneous: Visualized brain and orbits appear normal. Lung apices appear clear. Superficial so ft tissues appear normal. Bones: No suspicious bony lesions. Polypoidal mucosal thickening versus mucus retention cyst in the left frontal sinus. IMPRESSION: Normal neck CT. No abnormal findings to explain the patient's right-sided neck pain. CLINICAL RECOMMENDATION STATEMENTS: In patients <35 years with an ITN detected on CT, MRI, or extrathyroidal ultrasound, the Committee re commends further evaluation with dedicated thyroid ultrasound if the nodule is "e1 cm and has no susp icious imaging features, and if the patient has normal life expectancy. In patients "e35 years with an ITN detected on CT, MRI, or extrathyroidal ultrasound, the Committee r ecommends further evaluation with dedicated thyroid ultrasound if the nodule is "e1.5 cm and has no s uspicious imaging features, and if the patient has normal life expectancy. (ACR, 2014) Reviewed by: Kuldip Mims MD on 06/18/2023 3:18 PM PDT Approved by: Kuldip Mims MD on 06/18/2023 3:18 PM PDT Station ID: [id number]
[2023-06-18] MEDS: iohexoL-300 100 ML VIAL IVP ONE (16:47)
== END 2023-06-18 15:49 | disposition home or self-care (01) ==
LOC: ED 11:54
DX: J02.9 Acute pharyngitis, unspecified (principal); G89.4 Chronic pain syndrome; F32.A Depression, unspecified; Z79.899 Other long term (current) drug therapy
CPT/HCPCS: 36415; 70491; 71046; 80053; 83735; 85025; 87633; 99284; Q9967